=== PATIENT | female | born 1985 | race African-American/Black ===

== ENCOUNTER → 2017-02-10 | Outpatient (CLI) | payer MEDICAID ==
[~2017-02-10] MED LIST: ACET-1697 PO; AZIT500T2 PO; CEPH500C PO; CYCL10TA9 PO; DOXY100C42 PO; FERR-57 PO; HYDR250V7 IM; IBP600T1 PO; IBUP-1773 PO; METR500T17 PO; OMEP20TA33 PO; OXYC-471 PO; PREN1TAB25 PO; PRENATAL VITAMIN; PROGESTERONE VG
--- NOTE | 2017-02-10 18:22 | Diagnostic Imaging Report ---
INDICATION: Pain. COMPARISON: None. FINDINGS: Three views of the right foot demonstrate no acute fracture or dislocation. There are no focal osseous lesions. There is no soft tissue swelling. Mild degenerative changes are noted at the first tarsometatarsal joint space. Otherwise, joint spaces are well maintained. No radiopaque foreign bodies are seen. IMPRESSION: 1. No acute fractures or dislocations of the right foot. 2. Mild degenerative changes at the first tarsometatarsal joint space. Dictated by: Dictated on workstation # [id number]
== END ==
LOC: RAD 17:32
PROVIDERS: ATTEND Nurse Practitioner Family
DX: M79.671 Pain in right foot (principal)
CPT/HCPCS: 73630

== ENCOUNTER 2018-04-05 10:20 | Inpatient (IN) | payer MEDICAID ==
[~2018-04-05] VITALS: Ht 160 cm; Wt 120.2 kg
--- OUTSIDE RECORDS SUMMARY | 2018-04-05 10:44 | XMS REPORT ---
Author Author DOLLY SHARIF [facility] Address Unknown Care Team Providers Care Conveyor Console Operator Name Role Phone CHANTEDOLLY Unavailable PROBLEMS Type Condition ICD9-CM Code SCU72-OE Code Onset Dates Condition Status SNOMED Code Problem Dental examination Z01.20 Active 880589025 Problem Acute bronchitis 466.0 Active 59466705 Problem Supervision of other normal V22.1 Active 641282864 Problem examination or test, positive result V72.42 Active 205032030 Problem Infections of genitourinary tract in , unspecified as to episode of care 646.60 Active 876339352 Problem Previous delivery, unspecified as to episode of care or not applicable 654.20 Active 508001109 ALLERGIES No Information SOCIAL HISTORY Never Assessed PLAN OF CARE VITAL SIGNS MEDICATIONS Unknown Medications RESULTS No Results PROCEDURES Procedure Date Ordered Result Body Site Billing Notes on claim November 12, 2016 IMMUNIZATIONS No Known Immunizations MEDICAL (GENERAL) HISTORY Type Description Date Surgical History ceaserian section 2005 Surgical History c- section 2006 Hospitalization History c -section ' -
--- OUTSIDE RECORDS SUMMARY | 2018-04-05 10:44 | XMS REPORT ---
Author Author ARY MOHAN [facility] Address [address] [place] [address] Care Team Providers Care Movement Assembly Final Inspector Name Role Phone ARY MOHAN Unavailable PROBLEMS Type Condition ICD9-CM Code ILG91-TQ Code Onset Dates Condition Status SNOMED Code Problem Dental examination Z01.20 Active 527442699 Problem Acute bronchitis 466.0 Active 06835313 Problem Supervision of other normal V22.1 Active 835458259 Problem examination or test, positive result V72.42 Active 485716742 Problem Infections of genitourinary tract in , unspecified as to episode of care 646.60 Active 650035192 Problem Previous delivery, unspecified as to episode of care or not applicable 654.20 Active 098926547 ALLERGIES No Known Allergies SOCIAL HISTORY Never Assessed PLAN OF CARE Activity Details Follow Up 2 Weeks Reason:juliet VITAL SIGNS Blood pressure systolic 131 mmHg 2016-10-29 Blood pressure diastolic 86 mmHg 2016-10-29 MEDICATIONS Unknown Medications RESULTS No Results PROCEDURES Procedure Date Ordered Result Body Site INTRAORL-PERIAPICAL 1 FILM 94796 Oct 29, 2016 INTRAORL-PERIAPICAL EA ADD FILM Oct 29, 2016 TOPICAL FLUORIDE VARNISH Oct 29, 2016 BITEWINGS - FOUR FILMS Oct 29, 2016 INTRAORL-PERIAPICAL EA ADD FILM Oct 29, 2016 PROPHYLAXIS - ADULT Oct 29, 2016 PANORAMIC FILM SEE ALSO CODE 65883 Oct 29, 2016 IMMUNIZATIONS No Known Immunizations MEDICAL (GENERAL) HISTORY Type Description Date Surgical History ceaserian section 2005 Surgical History c- section 2005 Hospitalization History c -section -
[2018-04-05] MEDS ORDERED: NS IV 1000 ML 1,000 ML IV ONE ×2 (10:46→12:39)
[2018-04-05] MEDS ORDERED: fentaNYL INJECTION 100 MCG/2 ML AMP IVP STA ×2 (10:46→11:47)
--- OUTSIDE RECORDS SUMMARY | 2018-04-05 10:46 | XMS REPORT | Continuity of Care Document ---
Author Author [facility] Address Unknown Phone Unavailable Allergies Active Description Code Type Severity Reaction Onset Reported/Identified Relationship to Patient Clinical Status Yes No Known Drug Allergies [id number] Drug Allergy Unknown N/A 09/25/2014 Medications There is no data. Problems Date Dx Coded Attending Type Code Diagnosis Diagnosed By 04/21/2013 MARCOS GARZA DO 466.0 BRONCHITIS, ACUTE 04/21/2013 MANJU PANIAGUA APRN 466.0 BRONCHITIS, ACUTE 07/21/2014 MARCOS GARZA DO V72.42 TEST POSITIVE RESULT 07/21/2014 MANJU PANIAGUA APRN V72.42 TEST POSITIVE RESULT 09/05/2014 MANJU PANIAGUA APRN 646.60 COMPL OF - UTI 09/05/2014 MANJU PANIAGUA APRN 654.20 PREVIOUS 09/05/2014 MANJU PANIAGUA APRN V22.1 , NORMAL OTHER 09/25/2014 KARLA DIAZ, JULIAN T Ot 599.0 URIN TRACT INFECTION NOS 09/25/2014 KARLA DIAZ, JULIAN T Ot 623.8 NONINFLAM DIS VAGINA NEC 09/25/2014 KARLA DIAZ, JULIAN T Ot 646.63 INFECTION-ANTEPARTUM 09/25/2014 KARLA DIAZ, JULIAN T Ot 654.73 ABNORM VAGINA-ANTEPARTUM 09/25/2014 KARLA DIAZ, JULIAN Medley Ot V07.2 PROPHYLACT IMMUNOTHERAPY 10/16/2014 MANJU PANIAGUA APRN Ot V22.1 10/16/2014 MANJU PANAIGUA APRN Ot V28.89 10/18/2014 MARCOS GARZA DO Ot 285.1 AC POSTHEMORRHAG ANEMIA 10/18/2014 MARCOS GARZA DO Ot 648.21 ANEMIA-DELIVERED 10/18/2014 MARCOS GARZA DO Ot 652.21 BREECH PRESENTAT-DELIVER 10/18/2014 GREG WARD MARCOS Fabiola Ot 658.11 DEE DEE RUPT MEMBRAN-DELIV 10/18/2014 GARZA MARCOS WARD Ot 666.02 THRD-STAGE HEM-DEL W P/P 10/18/2014 GREG WARDANDREEAA Fabiola Ot 670.12 PUERPERAL ENDOMETRITIS DELIVERED W POSTP 10/18/2014 GREG WARD MARCOS Fabiola Ot V27.1 DELIVER-SINGLE STILLBORN 11/14/2014 Ot 784.7 11/14/2014 Ot 923.00 11/14/2014 Ot 959.01 11/14/2014 Ot E000.8 11/14/2014 Ot E812.1 12/21/2014 MANJU PANIAGUA [employer] CONSULTANT Ot V22.1 12/21/2014 MANJU PANIAGUA [employer] FIN[employer]CI[employer] CONSULTANT Ot V28.89 12/21/2014 MANJU PANIAGUA [employer] FIN[employer]CIALS CONSULTANT Ot V22.1 12/21/2014 MANJU PANIAGUA [employer] FIN[employer]CIALS CONSULTANT Ot V28.89 02/12/2015 CLAUDETTE CARDONA [employer] CONSULTANT Ot 599.0 URIN TRACT INFECTION NOS 02/12/2015 CLAUDETTE CARDONA [employer] FIN[employer]CIALS CONSULTANT Ot 623.8 NONINFLAM DIS VAGINA NEC 02/12/2015 CLAUDETTE CARDONA [employer] FIN[employer]CI[employer] CONSULTANT Ot 640.03 THREATEN ABORT-ANTEPART 02/12/2015 CLAUDETTE CARDONA [employer] CONSULTANT Ot 646.63 INFECTION-ANTEPARTUM 02/12/2015 MANJU PANIAGUA [employer] FIN[employer]CIALS CONSULTANT Ot V22.1 02/12/2015 MANJU PANIAGUA A [employer] FIN[employer]CIALS CONSULTANT Ot V28.89 02/27/2015 CHRISTINA PANIAGUAIDI A [employer] CONSULTANT Ot V22.1 02/27/2015 CHRISTINA PANIAGUAIDI A [employer] FIN[employer]CIALS CONSULTANT Ot V28.89 02/27/2015 MANJU PANIAGUA A [employer] FIN[employer]CIALS CONSULTANT Ot V22.1 02/27/2015 MANJU PANIAGUA [employer] FIN[employer]CIALS CONSULTANT Ot V28.89 03/08/2015 CHRISTINA PANIAGUAIDI A [employer] FIN[employer]CIALS CONSULTANT Ot V22.1 03/08/2015 MANJU PANIAGUA A [employer]AC[employer] FINANCIALS CONSULTANT Ot V28.89 03/13/2015 MANJU PANIAGUA [employer] FINANCIALS CONSULTANT Ot V22.1 03/13/2015 MANJU PANIAGUA [employer] FIN[employer]CIALS CONSULTANT Ot V28.89 03/20/2015 MANJU PANIAGUA [employer] FIN[employer]CIALS CONSULTANT Ot V22.1 03/20/2015 MANJU PANIAGUA [employer] FIN[employer]CIALS CONSULTANT Ot V28.89 03/20/2015 LUCIANA WARDJENNIFER Ot 654.53 03/20/2015 CHOWDHURY JENNIFER Ot V72.84 03/20/2015 MANJU PANIAGUA [employer] FIN[employer] CONSULTANT Ot V22.1 03/20/2015 MANJU PANIAGUA [employer] FIN[employer]CIALS CONSULTANT Ot V28.89 03/20/2015 JENNIFER CHOWDHURY DO Ot 654.53 03/20/2015 CHOWDHUYR DOJENNIFER Ot V72.84 03/20/2015 JENNIFER CHOWDHURY DO Ot 654.53 CERV INCOMPET-ANTEPARTUM 04/14/2015 JENNIFER CHOWDHURY DO Ot 041.85 04/14/2015 JENNIFER CHOWDHURY DO Ot 616.10 04/14/2015 JENNIFER CHOWDHURY DO Ot 646.63 04/14/2015 JENNIFER CHOWDHURY DO Ot 654.23 04/14/2015 JENNIFER CHOWDHURY DO Ot 654.53 04/14/2015 JENNIFER CHOWDHURY DO Ot 658.13 04/20/2015 JENNIFER CHOWDHURY DO Ot 041.85 BACTERIAL INFEC DUE TO OTH GRAM-NEG ORGA 04/20/2015 JENNIFER CHOWDHURY DO Ot 616.10 VAGINITIS NOS 04/20/2015 JENNIFER CHOWDHURY DO Ot 646.63 INFECTION-ANTEPARTUM 04/20/2015 JENNIFER CHOWDHURY DO Ot 654.23 PREV DELIVERY, ANTEPARTUM COND 04/20/2015 JENNIFER CHOWDHURY DO Ot 654.53 CERV INCOMPET-ANTEPARTUM 04/20/2015 JENNIFER CHOWDHURY DO Ot 658.13 DEE DEE RUPT MEMB-ANTEPART 04/27/2015 JENNIFER CHOWDHURY DO Ot 644.03 THRT DEE DEE LABOR-ANTEPART 04/27/2015 JENNIFER CHOWDHURY DO Ot 658.13 DEE DEE RUPT MEMB-ANTEPART 04/29/2015 JENNIFER CHOWDHURY DO Ot 285.1 AC POSTHEMORRHAG ANEMIA 04/29/2015 JENNIFER CHOWDHURY DO Ot 632 MISSED 04/29/2015 JENNIFER CHOWDHURY DO Ot 648.22 ANEMIA-DELIVERED W P/P 04/29/2015 JENNIFER CHOWDHURY DO Ot 652.21 BREECH PRESENTAT-DELIVER 04/29/2015 JENNIFER CHOWDHURY DO Ot 654.21 PREV DELIVRY W/ OR W/O MENT ANT 04/29/2015 JENNIFER CHOWDHURY DO Ot 654.51 CERVICAL INCOMPET-DELIV 04/29/2015 JENNIFER CHOWDHURY DO Ot 658.21 PROLONG RUPT MEMB-DELIV 04/29/2015 JENNIFER CHOWDHURY DO Ot 658.41 AMNIOTIC INFECTION-DELIV 04/29/2015 JENNIFER CHOWDHURY DO Ot 667.12 RET PROD CONC-DEL W P/P 04/29/2015 JENNIFER CHOWDHURY DO Ot V07.2 PROPHYLACT IMMUNOTHERAPY 04/29/2015 JENNIFER CHOWDHURY DO Ot V27.0 DELIVER-SINGLE LIVEBORN 05/09/2015 JENNIFER CHOWDHURY DO Ot 041.85 05/09/2015 JENNIFER CHOWDHURY DO Ot 616.10 05/09/2015 JENNIFER CHOWDHURY DO Ot 646.63 05/09/2015 JENNIFER CHOWDHURY DO Ot 654.23 05/09/2015 JENNIFER CHOWDHURY DO Ot 654.53 05/09/2015 JENNIFER CHOWDHURY DO Ot 658.13 02/10/2017 MANJU PANIAGUA APRN Ot V22.1 SUPERVIS OTH NORMAL PREG 02/10/2017 MANJU PANIAGUA APRN Ot V28.89 OTHER SPECIFIED SCREENING 02/10/2017 JENNIFER CHOWDHURY DO Ot 654.53 CERV INCOMPET-ANTEPARTUM 02/10/2017 JENNIFER CHWODHURY DO Ot V72.84 EXAM PRE-OPERATIVE NOS 02/23/2017 NAZ CARPENTERP Ot M79.671 PAIN IN RIGHT FOOT Procedures Code Description [place] [address] TEST, URINE (IN- HOUSE) 07/21/2014 98821 US OB - EARLY <14 WEEKS 09/05/2014 52489 UA LONG DIP 09/05/2014 65444 CULTURE URINE 09/07/2014 69.02 D C POST DELIVERY 10/15/2014 73.59 MANUAL ASSIST DELIV NEC 10/15/2014 96.49 OTHER INSTILLATION 10/15/2014 67.59 OTH REPAIR INTERNAL CERVICAL OS 04/14/2015 69.02 D C POST DELIVERY 04/28/2015 73.59 MANUAL ASSIST DELIV NEC 04/28/2015 Results There is no data. Encounters ACCT No. Visit Date/Time Discharge Status Pt. Type Provider Facility Loc./Unit Complaint [id number] 09/05/2014 11:46:00 09/05/2014 23:59:59 CLS Outpatient SIVA COONEY MANJU A [id number] 07/21/2014 09:14:00 07/21/2014 23:59:59 CLS Outpatient GREG WARD MARCOS K [id number] 02/10/2017 17:32:00 02/10/2017 23:59:59 CLS Outpatient NAZ CARPENTER [facility] RAD R FOOT PAIN [id number] 04/28/2015 12:34:00 04/29/2015 12:50:00 DIS Inpatient JENNIFER CHOWDHURY DO [facility] LDRP MISCARRIAGE [id number] 04/27/2015 21:37:00 04/27/2015 23:10:00 DIS Outpatient JENNIFER CHOWDHURY DO [facility] WSo CONTRACTIONS [id number] 04/14/2015 19:15:00 04/20/2015 09:50:00 DIS Inpatient JENNIFER CHOWDHURY DO [facility] LDRP INCOMPETENT CERVIX, CHRONIC VAGINAL INFECTION [id number] 03/20/2015 09:11:00 03/20/2015 14:51:00 DIS Outpatient JENNIFER CHOWDHURY DO [facility] SDC CERVICAL INCOMPETENCE [id number] 03/15/2015 06:25:00 03/15/2015 23:59:59 CLS Outpatient JENNIFER CHOWDHURY DO [facility] PREOP CERVICAL INCOMPETENCE [id number] 02/12/2015 14:11:00 02/12/2015 17:23:00 DIS Emergency CLAUDETTE CARDONA APRN [facility] ER VAG BLEEDING/PASSING CLOTS 8 WKS PREG [id number] 10/13/2014 13:43:00 10/18/2014 10:10:00 DIS Inpatient MARCOS GARZA DO [facility] LDRP PPROM [id number] 09/25/2014 02:04:00 09/25/2014 04:27:00 DIS Emergency KARLA DIAZ, JULIAN Medley [facility] ER BLEEDING;13 WEEKS [id number] 09/15/2014 11:04:00 09/15/2014 23:59:59 CLS Outpatient MANJU PANIAGUA APRN [facility] RAD DATING,VIABILITY [id number] 11/14/2014 14:02:00 Document Registration
[2018-04-05 10:52] LABS: BASOPHILS % (AUTO) 0 % (0-10); EOSINOPHILS # (AUTO) 0.1 10^3/uL (0.0-0.3); EOSINOPHILS % (AUTO) 1 % (0-10); HEMATOCRIT 37 % (35-52); HEMOGLOBIN 12.2 G/DL (11.5-16.0); LYMPHOCYTES # (AUTO) 1.4 X 10^3 (1.0-4.0); LYMPHOCYTES % (AUTO) 8 % (12-44); MEAN CORPUSCULAR HEMOGLOBIN 21 PG (25-34); MEAN CORPUSCULAR HGB CONC 33 G/DL (32-36); MEAN CORPUSCULAR VOLUME 65 FL (80-99); MEAN PLATELET VOLUME 9.8 FL (7.4-10.4); MONOCYTES # (AUTO) 1.1 X 10^3 (0.0-1.0); MONOCYTES % (AUTO) 6 % (0-12); NEUTROPHILS # (AUTO) 14.5 X 10^3 (1.8-7.8); NEUTROPHILS % (AUTO) 85 % (42-75); PLATELET COUNT 283 10^3/uL (130-400); RED BLOOD COUNT 5.71 10^6/uL (4.35-5.85); RED CELL DISTRIBUTION WIDTH 15.8 % (10.0-14.5); WHITE BLOOD COUNT 17.1 10^3/uL (4.3-11.0)
--- NOTE | 2018-04-05 10:56 | ED Abdominal Pain ---
General Stated Complaint: ABD PAIN Source of Information: Patient Exam Limitations: No Limitations History of Present Illness Date Seen by Provider: Apr 05, 2018 Time Seen by Provider: 10:46 Initial Comments Here with report of right lower quadrant abdominal pain since yesterday. Started her period recently. She does have IUD as well. Denies vaginal discharge. She is currently bleeding with her menstrual period. Denies dysuria or diarrhea. Complains of pain when walking or moving and pain seems to be centered on the right lower quadrant although did start more periumbilical. Arrives tachycardic and febrile. Timing/Duration: 1-2 Days Severity/Quality: Moderate, Severe Location: RLQ Radiation: RLQ, Periumbilical Activities at Onset: None Modifying Factors: Worsens With Movement Associated Symptoms: No Back Pain, No Chest Pain, No Fever/Chills, No Nausea/ Vomiting, No Shortness of Air, No Weakness Allergies and Home Medications Allergies Coded Allergies: No Known Drug Allergies (Unverified , 09/25/14) Home Medications No Active Prescriptions or Reported Meds Patient Home Medication List Home Medication List Reviewed: Yes Review of Systems Constitutional: see HPI; No chills; fever; No weakness EENTM: No Symptoms Reported Respiratory: No Symptoms Reported; Denies Cough, Denies SOA at Rest Cardiovascular: Denies Chest Pain, Denies Edema Gastrointestinal: Abdominal Pain; Denies Diarrhea, Denies Vomiting Genitourinary: No Symptoms Reported Musculoskeletal: No back pain, No muscle pain Skin: no symptoms reported All Other Systems Reviewed Negative Unless Noted: Yes Past Ihdlqad-Whgaoz-Njbcab Hx Past Med/Social Hx: Reviewed Nursing Past Med/Soc Hx Patient Social History Alcohol Use: Denies Use Recreational Drug Use: No Smoking Status: Never a Smoker Recent Foreign Travel: No Contact w/Someone Who Travel: No Immunizations Up To Date Tetanus Booster (TDap): Unknown Seasonal Allergies Seasonal Allergies: No Past Medical History Surgeries: Yes Section Cardiac: No Neurological: No Reproductive Disorders: No Sexually Transmitted Disease: No HIV/AIDS: No Gastrointestinal: No Musculoskeletal: No HEENT: No Cancer: No Integumentary: Yes Adverse Reaction/Blood Tranf: No Family Medical History Diabetes mellitus 19 FATHER 19 MOTHER Diabetes Physical Exam Vital Signs Vital Signs - First Documented 04/05/18 10:45 Temp 102.2 Pulse 135 Resp 18 B/P (MAP) 152/108 (123) Capillary Refill : Height/Weight/BMI Height: 5'3.00" Weight: 216lbs. oz. 97.243164nq; BMI Method:Stated General Appearance: WD/WN, mild distress HEENT: PERRL/EOMI, pharynx normal Neck: full range of motion, supple Respiratory: lungs clear, normal breath sounds Cardiovascular: regular rate, rhythm, no murmur Peripheral Pulses: 2+ Dorsalis Pedis (R), 2+ Left Dors-Pedis (L), 2+ Radial Pulses (R), 2+ Radial Pulses (L) Gastrointestinal: normal bowel sounds, soft; No distended, No guarding; rebound , tenderness (findings to the right lower quadrant) Extremities: non-tender, normal inspection Back: normal inspection, no CVA tenderness, no vertebral tenderness Neurologic/Psychiatric: alert, oriented x 3 Skin: normal color, warm/dry Focused Exam Lactate Level 04/05/18 10:50: Lactic Acid Level 1.24 Lactic Acid Level Laboratory Tests Test 04/05/18 10:50 Lactic Acid Level 1.24 MMOL/L (0.50-2.00) Progress/Results/Core Measures Results/Orders Lab Results Laboratory Tests Test 04/05/18 10:45 04/05/18 10:50 04/05/18 11:55 Range/Units White Blood Count 17.1 H 4.3-11.0 10^3/uL Red Blood Count 5.71 4.35-5.85 10^6/uL Hemoglobin 12.2 11.5-16.0 G/DL Hematocrit 37 35-52 % Mean Corpuscular Volume 65 L 80-99 FL Mean Corpuscular Hemoglobin 21 L 25-34 PG Mean Corpuscular Hemoglobin Concent 33 32-36 G/DL Red Cell Distribution Width 15.8 H 10.0-14.5 % Platelet Count 283 130-400 10^3/uL Mean Platelet Volume 9.8 7.4-10.4 FL Neutrophils (%) (Auto) 85 H 42-75 % Lymphocytes (%) (Auto) 8 L 12-44 % Monocytes (%) (Auto) 6 0-12 % Eosinophils (%) (Auto) 1 0-10 % Basophils (%) (Auto) 0 0-10 % Neutrophils # (Auto) 14.5 H 1.8-7.8 X 10^3 Lymphocytes # (Auto) 1.4 1.0-4.0 X 10^3 Monocytes # (Auto) 1.1 H 0.0-1.0 X 10^3 Eosinophils # (Auto) 0.1 0.0-0.3 10^3/uL Basophils # (Auto) 0.0 0.0-0.1 10^3/uL Neutrophils % (Manual) 83 % Lymphocytes % (Manual) 10 % Monocytes % (Manual) 5 % Eosinophils % (Manual) 0 % Basophils % (Manual) 0 % Band Neutrophils 2 % Hypochromasia SLIGHT Microcytosis MODERATE Sodium Level 137 135-145 MMOL/L Potassium Level 4.0 3.6-5.0 MMOL/L Chloride Level 109 H 98-107 MMOL/L Carbon Dioxide Level 22 21-32 MMOL/L Anion Gap 6 5-14 MMOL/L Blood Urea Nitrogen 12 7-18 MG/DL Creatinine 0.85 0.60-1.30 MG/DL Estimat Glomerular Filtration Rate > 60 BUN/Creatinine Ratio 14 Glucose Level 124 H 70-105 MG/DL Calcium Level 9.1 8.5-10.1 MG/DL Total Bilirubin 0.8 0.1-1.0 MG/DL Aspartate Amino Transf (AST/SGOT) 28 5-34 U/L Alanine Aminotransferase (ALT/SGPT) 32 0-55 U/L Alkaline Phosphatase 132 40-136 U/L C-Reactive Protein High Sensitivity 3.11 H 0.00-0.50 MG/DL Total Protein 7.8 6.4-8.2 GM/DL Albumin 3.8 3.2-4.5 GM/DL Serum Test, Qualitative NEGATIVE NEGATIVE Lactic Acid Level 1.24 0.50-2.00 MMOL/L Urine Color YELLOW Urine Clarity CLEAR Urine pH 8 5-9 Urine Specific [place] 1.010 L 1.016-1.022 Urine Protein 2+ H NEGATIVE Urine Glucose (UA) NEGATIVE NEGATIVE Urine Ketones NEGATIVE NEGATIVE Urine Nitrite POSITIVE H NEGATIVE Urine Bilirubin NEGATIVE NEGATIVE Urine Urobilinogen 4 H NORMAL MG/DL Urine Leukocyte Esterase 3+ H NEGATIVE Urine RBC (Auto) 5+ H NEGATIVE Urine RBC 5-10 H /HPF Urine WBC 25-50 H /HPF Urine Squamous Epithelial Cells 2-5 /HPF Urine Crystals NONE /LPF Urine Bacteria LARGE H /HPF Urine Casts NONE /LPF Urine Mucus NEGATIVE /LPF Urine Culture Indicated YES My Orders Orders - EMILY MCGINNIS MD Cbc With Automated Diff (04/05/18 10:46) Comprehensive Metabolic Panel (04/05/18 10:46) Hs C Reactive Protein (04/05/18 10:46) Ua Culture If Indicated (04/05/18 10:46) Saline Lock/Iv-Start (04/05/18 10:46) Ns Iv 1000 Ml (Sodium Chloride 0.9%) (04/05/18 10:46) Fentanyl Injection (Sublimaze Injection (04/05/18 10:46) Manual Differential (04/05/18 10:45) Hcg,Qualitative Serum (04/05/18 10:53) Lactic Acid Analyzer (04/05/18 10:53) Blood Culture (04/05/18 10:53) Ct Abd/Pelv W (Appendicitis) (04/05/18 11:09) Iohexol Injection (Omnipaque 350 Mg/Ml 1 (04/05/18 11:15) Ns (Ivpb) (Sodium Chloride 0.9% Ivpb Bag (04/05/18 11:15) Fentanyl Injection (Sublimaze Injection (04/05/18 11:47) Urine Culture (04/05/18 11:55) Ceftriaxone Injection (Rocephin Injectio (04/05/18 12:30) Ketorolac Injection (Toradol Injection) (04/05/18 12:26) Ondansetron Injection (Zofran Injectio (04/05/18 12:45) Saline Lock/Iv-Start (04/05/18 12:39) Ns Iv 1000 Ml (Sodium Chloride 0.9%) (04/05/18 12:39) Ondansetron Injection (Zofran Injectio (04/05/18 12:37) Medications Given in ED Current Medications Medications Dose Ordered Sig/Lexx Route Start Time Stop Time Status Last Admin Dose Admin Ceftriaxone Sodium 1000 mg/ Sodium Chloride 50 ml @ 100 mls/hr ONCE ONCE IV 04/05/18 12:30 04/05/18 12:59 04/05/18 12:36 100 MLS/HR Iohexol 100 ml ONCE ONCE IV 04/05/18 11:15 04/05/18 11:17 DC 04/05/18 11:24 100 ML Ondansetron HCl 8 mg ONCE ONCE IVP 04/05/18 12:45 04/05/18 12:46 04/05/18 12:41 8 MG Sodium Chloride 100 ml ONCE ONCE IV 04/05/18 11:15 04/05/18 11:17 DC 04/05/18 11:24 100 ML Sodium Chloride 1,000 ml @ 0 mls/hr Q0M ONCE IV 04/05/18 10:46 04/05/18 10:48 DC 04/05/18 11:02 1,000 MLS/HR Sodium Chloride 1,000 ml @ 0 mls/hr Q0M ONCE IV 04/05/18 12:39 04/05/18 12:40 DC 04/05/18 12:41 1,000 MLS/HR Vital Signs/I&O 04/05/18 10:45 Temp 102.2 Pulse 135 Resp 18 B/P (MAP) 152/108 (123) Progress Progress Note : Progress Note Seen and evaluated. IV, labs, UA, normal saline 1 L bolus and fentanyl [address] abdomen and pelvis appendicitis protocol ordered. Monitor patient. Pain persists. Fentanyl 75 g IV ordered. 1225: CT results noted and UA results noted. Urine is positive for urinary tract infection with nitrite positive findings as well as multiple white cells. Physical exam is more consistent with appendicitis but we will initiate treatment for UTI with Rocephin 1 g IV. I have discussed the case with Dr. Sky and she accepts patient for admission due to probable pyelonephritis especially given her elevated white count and fever. I will also consult Dr. Chiang due to my concerns related to the appendix as well as the multiple enlarged lymph nodes. This may be related to either appendicitis or the pyelonephritis but will need to have further evaluation. All findings and concerns were discussed with patient and family who agree with plan. Admit, inpatient status. Diagnostic Imaging Diagonstic Imaging: CT Plain Films/CT/US/NM/MRI: abdomen, pelvis Comments NAME: LEYLA PICHARDO [facility] REC#: [id number] PT STATUS: REG ER : 1985 PHYSICIAN: EMILY MCGINNIS MD ADMIT DATE: 04/05/18/ER Draft Date of Exam:07/23/18 CT ABD/PELV W (APPENDICITIS) PROCEDURE: CT abdomen and pelvis with contrast, rule out appendicitis. TECHNIQUE: Multiple contiguous axial images were obtained through the abdomen and pelvis after the administration of intravenous contrast. INDICATION: Left-sided abdominal pain and nausea of one day's duration. I have no previous for comparison. Abnormal morphology of the renal cortices which may reflect chronic areas of scarring or persistent lobation. No hydronephrosis or evidence for renal mass is found and no perinephric edema or acute renal pathology. The adrenals are negative. Liver measures 24 cm transverse by 17 cm cephalocaudal. The spleen is nonfocal and is normal in size. The gallbladder appears normal. There is no bile duct dilatation. The patient's pancreas unremarkable. The appendix is a upper limits of size at 8.3 cm transverse however shows air within its lumen and the wall was not appreciably thickened and there is no periappendiceal edema. There is an IUD device present abnormally positioned inferiorly and abnormally oblique in its orientation where its limbs appeared likely embedding within the myometrium of the lower uterine segment. Correlative ultrasound recommended. No evidence for perforation or hemorrhage. Adnexa appeared unremarkable. The urinary bladder is unremarkable. There is no bowel, biliary or urinary tract obstruction. There is some fluid within the distal small bowel and proximal colon of questionable significance. Air and stool distally to the rectal vault present, no free air or pneumatosis. No differential air-fluid levels. There is mild to moderate periaortic retroperitoneal lymphadenopathy. There are multiple lymph nodes measuring greater than 1 cm, the largest is 1.4 x 1.2 cm. These are found bilaterally above and below the level of the patent renal veins. There is mild adenopathy along the mesenteric root where predominantly spherical nodes measured about 1 cm maximal. There is a bilateral iliac chain and pelvic sidewall adenopathy and mild bilateral inguinal lymphadenopathy. There is no suspicious osseous pattern, no fracture. No ascites, abscess, hematoma or other fluid collection. IMPRESSION: 1. Mild abdominal pelvic mesenteric and retroperitoneal lymphadenopathy with nonfocal hepatomegaly. Findings cannot be confirmed benign and either tissue sampling or short-term followup would be recommended. 2. There appears to be malpositioning of an IUD device caudally positioned and with its bilateral lens likely imbedding into the lower myometrium. No perforation or hemorrhage. 3. Likely an incidental persistent lobation versus less likely the sequelae of chronic areas of cortical scarring and volume loss in the kidneys. Unobstructed urinary tracts with no acute urinary tract pathology. 4. Borderline fluid distention of the distal small bowel in the proximal large bowel, may reflect mild nonspecific enterocolitis or hypermotile state. Dictated on workstation # [id number] Dict: 04/05/18 1139 Trans: 04/05/18 1155 [facility] [id number] Interpreted by: MARINO ROMAN Electronically signed by: Reviewed: Reviewed by Me Departure Communication (Admissions) Time/Spoke to Admitting Phy: 12:38 Time/Spoke to Consulting Phy: 12:25 Impression Primary Impression: Pyelonephritis Additional Impression: Right lower quadrant abdominal pain Disposition: ADMITTED INPATIENT Condition: Stable Admissions Decision to Admit Reason: Admit from ER (General) Decision to Admit/Date: Apr 05, 2018 Time/Decision to Admit Time: 12:25 Departure-Patient Inst. Referrals: [facility] (PCP/Family) Primary Care Physician Scripts No Active Prescriptions or Reported Meds EMILY MCGINNIS MD Apr 05, 2018 10:56
[2018-04-05 11:10] LABS: ALANINE AMINOTRANSFERASE 32 U/L (0-55); ALBUMIN 3.8 GM/DL (3.2-4.5); ALKALINE PHOSPHATASE 132 U/L (40-136); BILIRUBIN,TOTAL 0.8 MG/DL (0.1-1.0); BUN/CREATININE RATIO 14; CALCIUM 9.1 MG/DL (8.5-10.1); CARBON DIOXIDE 22 MMOL/L (21-32); CHLORIDE 109 MMOL/L (98-107); CREATININE SERUM 0.85 MG/DL (0.60-1.30); GFR ESTIMATED > 60; GLUCOSE 124 MG/DL (70-105); SODIUM 137 MMOL/L (135-145); TOTAL PROTEIN 7.8 GM/DL (6.4-8.2)
[2018-04-05] MEDS ORDERED: IOHEXOL 350 MG/ML 100 ML (OMNIPAQUE 350) VIAL IV ONE (11:15)
[2018-04-05] MEDS ORDERED: NS 100 ML (IVPB) BAG IV ONE (11:15)
[2018-04-05 11:16] LABS: BAND NEUTROPHILS 2 %; BASOPHILS % (MANUAL) 0 %; EOSINOPHILS % (MANUAL) 0 %; HYPOCHROMASIA SLIGHT; LYMPHOCYTES % (MANUAL) 10 %; MICROCYTOSIS MODERATE; MONOCYTES % (MANUAL) 5 %; NEUTROPHILS % (MANUAL) 83 %
--- NOTE | 2018-04-05 11:56 | Diagnostic Imaging Report ---
PROCEDURE: CT abdomen and pelvis with contrast, rule out appendicitis. TECHNIQUE: Multiple contiguous axial images were obtained through the abdomen and pelvis after the administration of intravenous contrast. INDICATION: Left-sided abdominal pain and nausea of one day's duration. I have no previous for comparison. Abnormal morphology of the renal cortices which may reflect chronic areas of scarring or persistent lobation. No hydronephrosis or evidence for renal mass is found and no perinephric edema or acute renal pathology. The adrenals are negative. Liver measures 24 cm transverse by 17 cm cephalocaudal. The spleen is nonfocal and is normal in size. The gallbladder appears normal. There is no bile duct dilatation. The patient's pancreas unremarkable. The appendix is a upper limits of size at 8.3 cm transverse however shows air within its lumen and the wall was not appreciably thickened and there is no periappendiceal edema. There is an IUD device present abnormally positioned inferiorly and abnormally oblique in its orientation where its limbs appeared likely embedding within the myometrium of the lower uterine segment. Correlative ultrasound recommended. No evidence for perforation or hemorrhage. Adnexa appeared unremarkable. The urinary bladder is unremarkable. There is no bowel, biliary or urinary tract obstruction. There is some fluid within the distal small bowel and proximal colon of questionable significance. Air and stool distally to the rectal vault present, no free air or pneumatosis. No differential air-fluid levels. There is mild to moderate periaortic retroperitoneal lymphadenopathy. There are multiple lymph nodes measuring greater than 1 cm, the largest is 1.4 x 1.2 cm. These are found bilaterally above and below the level of the patent renal veins. There is mild adenopathy along the mesenteric root where predominantly spherical nodes measured about 1 cm maximal. There is a bilateral iliac chain and pelvic sidewall adenopathy and mild bilateral inguinal lymphadenopathy. There is no suspicious osseous pattern, no fracture. No ascites, abscess, hematoma or other fluid collection. IMPRESSION: 1. Mild abdominal pelvic mesenteric and retroperitoneal lymphadenopathy with nonfocal hepatomegaly. Findings cannot be confirmed benign and either tissue sampling or short-term followup would be recommended. 2. There appears to be malpositioning of an IUD device caudally positioned and with its bilateral lens likely imbedding into the lower myometrium. No perforation or hemorrhage. 3. Likely an incidental persistent lobation versus less likely the sequelae of chronic areas of cortical scarring and volume loss in the kidneys. Unobstructed urinary tracts with no acute urinary tract pathology. 4. Borderline fluid distention of the distal small bowel in the proximal large bowel, may reflect mild nonspecific enterocolitis or hypermotile state. Dictated by: Dictated on workstation # [id number]
[2018-04-05 12:04] LABS: BILIRUBIN,URINE NEGATIVE (NEGATIVE); CLARITY,URINE CLEAR; COLOR,URINE YELLOW; GLUCOSE, URINE (UA) NEGATIVE (NEGATIVE); KETONES,URINE NEGATIVE (NEGATIVE); LEUKOCYTE ESTERASE ,URINE 3+ (NEGATIVE); NITRITE,URINE POSITIVE (NEGATIVE); PH,URINE 8 (5-9); PROTEIN,URINE 2+ (NEGATIVE); UROBILINOGEN,URINE 4 MG/DL (NORMAL)
[2018-04-05 12:13] LABS: BACTERIA,URINE LARGE /HPF; WBC,URINE 25-50 /HPF
[2018-04-05] MEDS ORDERED: KETOROLAC 30 MG/ML VIAL IVP STA (12:26)
[2018-04-05] MEDS ORDERED: cefTRIAXone INJECTION 1,000 MG in NS (IVPB) 50 ML IV ONE (12:30)
[2018-04-05] MEDS ORDERED: ONDANSETRON 4 MG/2 ML (SDV) Z0FRAN ONE (12:37)
[2018-04-05] MEDS ORDERED: ONDANSETRON 4 MG/2 ML (SDV) Z0FRAN IVP ONE (12:45)
--- OUTSIDE RECORDS SUMMARY | 2018-04-05 13:21 | XMS REPORT | Continuity of Care Document ---
Author Author [facility] Address Unknown Phone Unavailable Allergies Active Description Code Type Severity Reaction Onset Reported/Identified Relationship to Patient Clinical Status Yes No Known Drug Allergies [id number] Drug Allergy Unknown N/A 09/25/2014 Medications There [...] MANJU PANIAGUA APRN Ot V22.1 10/16/2014 MANJU PANIAGUA APRN Ot V28.89 10/18/2014 MARCOS GARZA DO [...] E000.8 11/14/2014 Ot E812.1 12/21/2014 MANJU PANIAGUA MELON PACKER Ot V22.1 12/21/2014 MANJU PANIAGUA MELON PACKER Ot V28.89 12/21/2014 MANJU PANIAGUA MELON PACKER Ot V22.1 12/21/2014 MANJU PANIAGUA MELON PACKER Ot V28.89 02/12/2015 CLAUDETTE CARDONA MELON PACKER Ot 599.0 URIN TRACT INFECTION NOS 02/12/2015 CLAUDETTE CARDONA MELON PACKER Ot 623.8 NONINFLAM DIS VAGINA NEC 02/12/2015 CLAUDETTE CARDONA MELON PACKER Ot 640.03 THREATEN ABORT-ANTEPART 02/12/2015 CLAUDETTE CARDONA MELON PACKER Ot 646.63 INFECTION-ANTEPARTUM 02/12/2015 MANJU PANIAGUA MELON PACKER Ot V22.1 02/12/2015 MANJU PANIAGUA A MELON PACKER Ot V28.89 02/27/2015 CHRISTINA PANIAGUAIDI A MELON PACKER Ot V22.1 02/27/2015 CHRISTINA PANIAGUAIDI A MELON PACKER Ot V28.89 02/27/2015 MANJU PANIAGUA A MELON PACKER Ot V22.1 02/27/2015 MANJU PANIAGUA MELON PACKER Ot V28.89 03/08/2015 CHRISTINA PANIAGUAIDI A MELON PACKER Ot V22.1 03/08/2015 MANJU PANIAGUA A MELON PACKER Ot V28.89 03/13/2015 MANJU PANIAGUA MELON PACKER Ot V22.1 03/13/2015 MANJU PANIAGUA MELON PACKER Ot V28.89 03/20/2015 MANJU PANIAGUA MELON PACKER Ot V22.1 03/20/2015 MANJU PANIAGUA MELON PACKER Ot V28.89 03/20/2015 LUCIANA WARDJENNIFER Ot 654.53 03/20/2015 CHOWDHURY JENNIFER Ot V72.84 03/20/2015 MANJU PANIAGUA MELON PACKER Ot V22.1 03/20/2015 MANJU PANIAGUA MELON PACKER Ot V28.89 03/20/2015 JENNIFER CHOWDHURY DO Ot 654.53 03/20/2015 CHOWDHURY DOJENNIFER Ot V72.84 03/20/2015 JENNIFER CHOWDHURY DO [...] CHOWDHURY DO Ot 652.21 BREECH PRESENTAT-DELIVER 04/29/2015 JENNIFRE CHOWDHURY DO Ot 654.21 PREV DELIVRY W/ [...] DO Ot 654.53 CERV INCOMPET-ANTEPARTUM 02/10/2017 JENNIFER CHOWDHURY DO Ot V72.84 EXAM PRE-OPERATIVE NOS 02/23/2017 NAZ CARPENTERP Ot M79.671 PAIN IN RIGHT FOOT Procedures Code Description [place] [address] TEST, URINE (IN- HOUSE) 07/21/2014 03465 US OB - EARLY <14 WEEKS 09/05/2014 59414 UA LONG DIP 09/05/2014 60345 CULTURE URINE 09/07/2014 69.02 D C POST DELIVERY 10/15/2014 73.59 MANUAL ASSIST DELIV NEC 10/15/2014 96.49 OTHER INSTILLATION 10/15/2014 67.59 OTH REPAIR INTERNAL CERVICAL OS 04/14/2015 69.02 D C POST DELIVERY 04/28/2015 73.59 MANUAL ASSIST DELIV NEC 04/28/2015 Results There is no data. Encounters ACCT No. Visit Date/Time Discharge Status Pt. Type Provider Facility Loc./Unit Complaint [id number] 09/05/2014 11:46:00 09/05/2014 23:59:59 CLS Outpatient SIVA COONEY MANJU A [id number] 07/21/2014 09:14:00 07/21/2014 23:59:59 CLS Outpatient GREG WARD MARCOS K [id number] 02/10/2017 17:32:00 02/10/2017 23:59:59 CLS Outpatient NAZ CARPENTER [facility] RAD R FOOT PAIN [id number] 04/28/2015 12:34:00 04/29/2015 12:50:00 DIS Inpatient JENNIFER CHOWDHURY DO [facility] LDRP MISCARRIAGE [id number] 04/27/2015 21:37:00 04/27/2015 23:10:00 DIS Outpatient JENNIFER CHOWDHURY DO [facility] WSo CONTRACTIONS [id number] 04/14/2015 19:15:00 04/20/2015 09:50:00 DIS Inpatient JENNIFER CHOWDHURY DO [facility] LDRP INCOMPETENT CERVIX, CHRONIC VAGINAL INFECTION [id number] 03/20/2015 09:11:00 03/20/2015 14:51:00 DIS Outpatient JENNIFER CHOWDHURY DO [facility] SDC CERVICAL INCOMPETENCE [id number] 03/15/2015 06:25:00 03/15/2015 23:59:59 CLS Outpatient JENNIFER CHOWDHURY DO [facility] PREOP CERVICAL INCOMPETENCE [id number] 02/12/2015 14:11:00 02/12/2015 17:23:00 DIS Emergency CLAUDETTE CARDONA APRN [facility] ER VAG BLEEDING/PASSING CLOTS 8 WKS PREG [id number] 10/13/2014 13:43:00 10/18/2014 10:10:00 DIS Inpatient MARCOS GARZA DO [facility] LDRP PPROM [id number] 09/25/2014 02:04:00 09/25/2014 04:27:00 DIS Emergency KARLA DIAZ, JULIAN Medley [facility] ER BLEEDING;13 WEEKS [id number] 09/15/2014 11:04:00 09/15/2014 23:59:59 CLS Outpatient MANJU PANIAGUA APRN [facility] RAD DATING,VIABILITY [id number] 11/14/2014 14:02:00 Document Registration
--- NOTE | 2018-04-05 13:27 | History & Physical-Hospitalist ---
History of Present Illness HPI/Chief Complaint CC: RLQ abdominal pain with fever and Pyelonephritis HPI: This is a 33-year-old -[place] female who sees [facility] on a rare basis who presents to the ER with complaints of right lower quadrant abdominal pain with fever. She reports feeling well until 2 days prior when she started having nausea and the abdominal pain started and only worsened. She was assessed in the ER found to have elevated white count with fever of 102 in addition to a questionable right lower quadrant CT scan that could reveal early appendicitis. Dr. Chiang has been consulted and will place patient in nothing by mouth status and will monitor closely in case acute appendicitis is confirmed. She did have nausea and vomiting in the ER so will initiate IV fluids and anti-emetics along with abdominal pain management. She has been placed on Rocephin empirically and will follow up on urine culture results. Source: patient, family Exam Limitations: no limitations Date Seen 04/05/18 Time Seen by Provider: 13:10 Attending Physician Rosa Sky DO [facility] Referring Physician Date of Admission Apr 05, 2018 at 12:27 Home Medications & Allergies Home Medications Reviewed patient Home Medication Reconciliation performed by pharmacy medication reconciliations biomass technician and/or nursing. Patients Allergies have been reviewed. Allergies Allergies Coded Allergies No Known Drug Allergies (Unverified09/25/14) Past Aexornt-Wkjtbx-Fppvvs Hx Past Med/Social Hx: Reviewed Nursing Past Med/Soc Hx, Reviewed and Corrections made Patient Social History Marrital Status: single Employed/Student: employed ([employer]) Alcohol Use: Denies Use Recreational Drug Use: No Smoking Status: Never a Smoker Recent Foreign Travel: No Contact w/other who traveled: No Recent Hopitalizations: No Recent Infectious Disease Expo: No Immunizations Up To Date Tetanus Booster (TDap): Unknown Seasonal Allergies Seasonal Allergies: No Past Medical History Surgeries: Section Reproductive: No Sexually Transmitted Disease: No HIV/AIDS: No Female Reproductive Disorders: Denies History of Blood Disorders: No Adverse Reaction to Blood Jur[place]: No Family History Diabetes mellitus 19 FATHER 19 MOTHER Diabetes Review of Systems Constitutional: see HPI, fever, malaise, weakness EENTM: no symptoms reported Respiratory: no symptoms reported Cardiovascular: no symptoms reported Gastrointestinal: abdominal pain (RLQ), constipation (1 week ago last BM, chronic issue) Musculoskeletal: back pain Skin: no symptoms reported Psychiatric/Neurological: No Symptoms Reported All Other Systems Reviewed Negative Unless Noted: Yes Physical Exam Physical Exam Vital Signs Vital Signs - First Documented 04/05/18 04/05/18 10:45 13:19 Temp 102.2 Pulse 135 Resp 18 B/P (MAP) 152/108 (123) Pulse Ox 95 Capillary Refill : Less Than 3 Seconds Height, Weight, BMI Height: 5'3.00" Weight: 230lbs. oz. 104.435858bx; BMI Method:Stated General Appearance: No Apparent Distress, WD/WN, Obese Eyes: Bilateral Eye Normal Inspection, Bilateral Eye PERRL HEENT: PERRL/EOMI, TMs Normal, Normal ENT Inspection, Pharynx Normal Neck: Full Range of Motion, Normal Inspection, Non Tender, Supple, Carotid Bruit Respiratory: Chest Non Tender, Lungs Clear, Normal Breath Sounds, No Accessory Muscle Use, No Respiratory Distress Cardiovascular: Regular Rate, Rhythm, No Edema, No Gallop, No JVD, No Murmur, Normal Peripheral Pulses Gastrointestinal: Normal Bowel Sounds, No Organomegaly, No Pulsatile Mass, Soft , Abnormal Bowel Sounds, Distended, Tenderness (RLQ) Back: Normal Inspection, No CVA Tenderness, No Vertebral Tenderness Extremity: Normal Capillary Refill, Normal Inspection, Normal Range of Motion, Non Tender, No Calf Tenderness, No Pedal Edema Neurologic/Psychiatric: Alert, Oriented x3, No Motor/Sensory Deficits, Normal Mood/Affect Skin: Normal Color, Warm/Dry Lymphatic: No Adenopathy Results Results/Procedures Labs Laboratory Tests 04/05/18 10:45 Patient resulted labs reviewed. Assessment/Plan Admission Diagnosis Acute pyelonephritis Leukocytosis Suspicious for acute appendicitis Plan: IV fluids IV pain medication Appreciate Dr. Chiang consultation Follow-up on urine culture Empiric Rocephin Admission Status: Inpatient Order (span 2 midnights) Reason for Inpatient Admission: Acute pyelonephritis with fever will require more than 2 midnights in the hospital with IV antibiotics Diagnosis/Problems Diagnosis/Problems (1) Right lower quadrant abdominal pain Status: Acute (2) Pyelonephritis Status: Acute (3) Fever Status: Acute Qualifiers: Fever type: unspecified Qualified Codes: R50.9 - Fever, unspecified (4) Leukocytosis Status: Acute Qualifiers: Leukocytosis type: leukemoid reaction Qualified Codes: D72.823 - Leukemoid reaction ROSA SKY DO Apr 05, 2018 13:27
[2018-04-05] MEDS ORDERED: fentaNYL INJECTION 100 MCG/2 ML AMP IV PRN ×2 (13:45→15:45)
[2018-04-05 14:00] VITALS: BP 156/89
[2018-04-05] MEDS: ONDANSETRON 4 MG/2 ML (SDV) Z0FRAN IV PRN (14:03)
[2018-04-05] MEDS: KETOROLAC 15 MG/ML VIAL IV PRN ×2 (14:08→23:43)
[2018-04-05] MEDS: NS IV 1000 ML 1,000 ML IV SCH ×2 (14:27→21:54)
[2018-04-05] MEDS ORDERED: PROMETHAZINE INJ 25 MG/ML (PHENERGAN) AMP IVP PRN (14:36)
[2018-04-05] MEDS: CATHETER FLUSH 10 ML SYR IV PRN (14:58)
[2018-04-05 16:15] VITALS: BP 134/71
--- NOTE | 2018-04-05 17:12 | Consultation ---
History of Present Illness History of Present Illness Patient Consulted On(any/time) 04/05/18 17:09 Date Seen by Provider: Apr 05, 2018 Time Seen by Provider: 13:50 Reason for Visit: Increasing lower abdominal pain and fever History of Present Illness Today's history of lower abdominal pain with nausea, fever with chills, requiring ER evaluation. CT scan shows the appendix to be about 8 mm in diameter without any evidence of inflammation or fecalith. A clinical diagnosis of pyelonephritis has been made. I been asked to see her to rule out acute appendicitis as the source of her symptoms. Allergies and Home Medications Allergies Coded Allergies: No Known Drug Allergies (Unverified , 09/25/14) Home Medications No Active Prescriptions or Reported Meds Patient Home Medication List Home Medication List Reviewed: Yes Past Oacldxu-Chnpiq-Chehdx Hx Past Med/Social Hx: Reviewed Nursing Past Med/Soc Hx Patient Social History Alcohol Use: Denies Use Recreational Drug Use: No Smoking Status: Never a Smoker Recent Foreign Travel: No Contact w/Someone Who Travel: No Recent Infectious Disease Expo: No Recent Hopitalizations: No Immunizations Up To Date Tetanus Booster (TDap): Unknown Seasonal Allergies Seasonal Allergies: No Past Medical History Surgeries: Yes (c sec x2, d&c) Section Respiratory: No Cardiac: No Neurological: No : No Last Menstrual Period: Apr 02, 2018 Reproductive Disorders: No Female Reproductive Disorders: Denies Sexually Transmitted Disease: No HIV/AIDS: No Genitourinary: No Gastrointestinal: Yes Chronic Constipation Musculoskeletal: No Endocrine: No HEENT: No Cancer: No Psychosocial: No Integumentary: No Blood Disorders: No Adverse Reaction/Blood Tranf: No Family Medical History Diabetes mellitus 19 FATHER 19 MOTHER Diabetes Review of Systems-General Constitutional: see HPI EENTM: no symptoms reported Respiratory: no symptoms reported Cardiovascular: no symptoms reported Genitourinary: see HPI Musculoskeletal: no symptoms reported Skin: no symptoms reported Psychiatric/Neurological: No Symptoms Reported Physical Exam-General Problems Physical Exam Vital Signs Vital Signs - First Documented 04/05/18 04/05/18 10:45 13:19 Temp 102.2 Pulse 135 Resp 18 B/P (MAP) 152/108 (123) Pulse Ox 95 Capillary Refill : Less Than 3 Seconds General Appearance: mild distress Gastrointestinal: non tender, soft Neurologic/Psychiatric: alert Skin: warm/dry Assessment/Plan Assessment/Plan Admission Diagnosis/Plan Lady with lower abdominal pain, fever with regular. Slightly enlarged appendix. It is reasonable to continue antibiotic therapy, managing her on the lines of pyelonephritis first. It is less likely that she has acute appendicitis and therefore reasonable to observe for now. She'll be reevaluated appropriately. Admission Status: Inpatient Order (span 2 midnights) ISRA MILLS MD Apr 05, 2018 5:12 pm
[2018-04-05 20:21] VITALS: BP 116/65
[2018-04-06] VITALS (7 sets, daily range): BP systolic 116–144; BP diastolic 74–103
[2018-04-06] MEDS: NS IV 1000 ML 1,000 ML IV SCH ×2 (06:09→16:39)
[2018-04-06 06:27] LABS: BASOPHILS % (AUTO) 0 % (0-10); EOSINOPHILS % (AUTO) 0 % (0-10); HEMATOCRIT 33 % (35-52); HEMOGLOBIN 11.3 G/DL (11.5-16.0); LYMPHOCYTES # (AUTO) 2.5 X 10^3 (1.0-4.0); LYMPHOCYTES % (AUTO) 9 % (12-44); MEAN CORPUSCULAR HEMOGLOBIN 22 PG (25-34); MEAN CORPUSCULAR HGB CONC 34 G/DL (32-36); MEAN CORPUSCULAR VOLUME 66 FL (80-99); MEAN PLATELET VOLUME 10.6 FL (7.4-10.4); MONOCYTES # (AUTO) 2.2 X 10^3 (0.0-1.0); MONOCYTES % (AUTO) 7 % (0-12); NEUTROPHILS # (AUTO) 24.7 X 10^3 (1.8-7.8); NEUTROPHILS % (AUTO) 84 % (42-75); PLATELET COUNT 243 10^3/uL (130-400); RED BLOOD COUNT 5.08 10^6/uL (4.35-5.85); RED CELL DISTRIBUTION WIDTH 15.6 % (10.0-14.5); WHITE BLOOD COUNT 29.5 10^3/uL (4.3-11.0)
[2018-04-06 06:47] LABS: ANISOCYTOSIS SLIGHT; BAND NEUTROPHILS 14 %; HYPOCHROMASIA SLIGHT; LYMPHOCYTES % (MANUAL) 14 %; MICROCYTOSIS MODERATE; MONOCYTES % (MANUAL) 13 %; NEUTROPHILS % (MANUAL) 59 %
[2018-04-06 06:51] LABS: ALANINE AMINOTRANSFERASE 25 U/L (0-55); ALBUMIN 3.3 GM/DL (3.2-4.5); ALKALINE PHOSPHATASE 128 U/L (40-136); BILIRUBIN,TOTAL 1.8 MG/DL (0.1-1.0); BUN/CREATININE RATIO 15; CALCIUM 8.2 MG/DL (8.5-10.1); CARBON DIOXIDE 18 MMOL/L (21-32); CHLORIDE 110 MMOL/L (98-107); CREATININE SERUM 0.95 MG/DL (0.60-1.30); GFR ESTIMATED > 60; GLUCOSE 61 MG/DL (70-105); POTASSIUM 3.7 MMOL/L (3.6-5.0); SODIUM 138 MMOL/L (135-145); TOTAL PROTEIN 6.9 GM/DL (6.4-8.2)
[2018-04-06] MEDS: metroNIDAZOLE 500MG/100ML IVPB 100 ML IV SCH ×3 (08:37→21:12)
--- NOTE | 2018-04-06 09:15 | Progress Note-Standard ---
Standard Progress Note Progress Notes/Assess & Plan Date Seen by Provider: Apr 06, 2018 Time Seen by Provider: 09:12 Progress/Assessment & Plan Denies abdominal pain and feels hungry. Nausea resolved. Temperature decreased. Leucocytosis more pronounced. Abdomen soft and non-tender. Doubt she has appendicitis. Urine cultures pending. Flagyl added. Will advance diet and follow [facility] Final Diagnosis Abdominal pain Focused Exam Lactate Level 04/05/18 10:50: Lactic Acid Level 1.24 ISRA MILLS MD Apr 06, 2018 09:15
--- NOTE | 2018-04-06 10:14 | Progress Note-Hospitalist ---
Subjective HPI/CC On Admission Date Seen by Provider: Apr 06, 2018 Time Seen by Provider: 09:45 CC: RLQ abdominal pain with fever and Pyelonephritis HPI: This is a 33-year-old -[place] female who sees [facility] on a rare basis who presents to the ER with complaints of right lower quadrant abdominal pain with fever. She reports feeling well until 2 days prior when she started having nausea and the abdominal pain started and only worsened. She was assessed in the ER found to have elevated white count with fever of 102 in addition to a questionable right lower quadrant CT scan that could reveal early appendicitis. Dr. Chiang has been consulted and will place patient in nothing by mouth status and will monitor closely in case acute appendicitis is confirmed. She did have nausea and vomiting in the ER so will initiate IV fluids and anti-emetics along with abdominal pain management. She has been placed on Rocephin empirically and will follow up on urine culture results. Subjective/Events-last exam Patient doing about the same although abdominal pain is much improved Fever continues due to acute pyelonephritis Elevated white count of 29,[address] Chiang assessed her and felt this was not acute appendicitis and it was indeed confirmed pyelonephritis Toradol given for pain and fever Overall much better and no vomiting today Review of Systems General: Fatigue Gastrointestinal: Abdominal Pain Focused Exam Lactate Level 04/05/18 10:50: Lactic Acid Level 1.24 Objective Exam Vital Signs Vital Signs Date Time Temp Pulse Resp B/P (MAP) Pulse Ox O2 Delivery O2 Flow Rate FiO2 04/06/18 21:13 101.9 04/06/18 20:51 109 24 137/87 (104) 96 Room Air Capillary Refill : Less Than 3 Seconds General Appearance: No No Apparent Distress; WD/WN Neck: Normal Inspection, Non Tender Respiratory: Chest Non Tender, Lungs Clear, Normal Breath Sounds, No Accessory Muscle Use, No Respiratory Distress Cardiovascular: Regular Rate, Rhythm, No Edema, No Gallop, No JVD, No Murmur, Normal Peripheral Pulses Gastrointestinal: Soft Neurologic/Psychiatric: Alert, Oriented x3, No Motor/Sensory Deficits, Normal Mood/Affect Results/Procedures Lab Laboratory Tests 04/06/18 05:12 Patient resulted labs reviewed. Assessment/Plan Assessment and Plan Assess & Plan/Chief Complaint Acute pyelonephritis Fever Abdominal pain RLQ Plan: Fever management IVF Pain control Abx Diagnosis/Problems Diagnosis/Problems (1) Right lower quadrant abdominal pain Status: Acute (2) Pyelonephritis Status: Acute (3) Fever Status: Acute Qualifiers: Fever type: unspecified Qualified Codes: R50.9 - Fever, unspecified (4) Leukocytosis Status: Acute Qualifiers: Leukocytosis type: leukemoid reaction Qualified Codes: D72.823 - Leukemoid reaction Clinical Quality Measures DVT/VTE Risk/Contraindication: Risk Factor Score Per Nursin RFS Level Per Nursing on Admit: 2=Moderate MAUREEN PEREZ DO Apr 06, 2018 10:14
[2018-04-06] MEDS: KETOROLAC 15 MG/ML VIAL IV PRN (15:56)
[2018-04-06] MEDS ORDERED: FUROSEMIDE 40 MG/4 ML INJ (LASIX) IVP ONE (16:45)
[2018-04-06] MEDS ORDERED: FUROSEMIDE 40 MG/4 ML INJ (LASIX) ONE (16:45)
[2018-04-06] MEDS: CATHETER FLUSH 10 ML SYR IV PRN (16:49)
[2018-04-06] MEDS ORDERED: ACETAMINOPHEN 325 MG TABLET PO PRN (21:00)
[2018-04-06] MEDS ORDERED: ACETAMINOPHEN 325 MG TABLET ONE (21:09)
[2018-04-06] MEDS: CATHETER FLUSH 10 ML SYR IV SCH (21:12)
[2018-04-06] MEDS: ONDANSETRON 4 MG/2 ML (SDV) Z0FRAN IV PRN (21:16)
[2018-04-07 00:20] VITALS: BP 125/80
[2018-04-07] MEDS: KETOROLAC 15 MG/ML VIAL IV PRN (00:35)
[2018-04-07 03:40] VITALS: BP 114/70
[2018-04-07] MEDS: CATHETER FLUSH 10 ML SYR IV SCH (05:40)
[2018-04-07] MEDS: metroNIDAZOLE 500MG/100ML IVPB 100 ML IV SCH (05:40)
[2018-04-07 06:24] LABS: BASOPHILS % (AUTO) 0 % (0-10); EOSINOPHILS # (AUTO) 0.2 10^3/uL (0.0-0.3); EOSINOPHILS % (AUTO) 1 % (0-10); HEMATOCRIT 31 % (35-52); HEMOGLOBIN 10.3 G/DL (11.5-16.0); LYMPHOCYTES # (AUTO) 2.1 X 10^3 (1.0-4.0); LYMPHOCYTES % (AUTO) 12 % (12-44); MEAN CORPUSCULAR HEMOGLOBIN 22 PG (25-34); MEAN CORPUSCULAR HGB CONC 33 G/DL (32-36); MEAN CORPUSCULAR VOLUME 66 FL (80-99); MEAN PLATELET VOLUME 9.9 FL (7.4-10.4); MONOCYTES # (AUTO) 1.3 X 10^3 (0.0-1.0); MONOCYTES % (AUTO) 8 % (0-12); NEUTROPHILS # (AUTO) 13.5 X 10^3 (1.8-7.8); NEUTROPHILS % (AUTO) 79 % (42-75); PLATELET COUNT 241 10^3/uL (130-400); RED BLOOD COUNT 4.79 10^6/uL (4.35-5.85); RED CELL DISTRIBUTION WIDTH 15.6 % (10.0-14.5); WHITE BLOOD COUNT 17.1 10^3/uL (4.3-11.0)
[2018-04-07 06:52] LABS: ALANINE AMINOTRANSFERASE 17 U/L (0-55); ALKALINE PHOSPHATASE 94 U/L (40-136); BILIRUBIN,TOTAL 0.9 MG/DL (0.1-1.0); BUN/CREATININE RATIO 16; CALCIUM 8.5 MG/DL (8.5-10.1); CARBON DIOXIDE 20 MMOL/L (21-32); CHLORIDE 112 MMOL/L (98-107); CREATININE SERUM 0.77 MG/DL (0.60-1.30); GFR ESTIMATED > 60; GLUCOSE 95 MG/DL (70-105); POTASSIUM 3.6 MMOL/L (3.6-5.0); SODIUM 138 MMOL/L (135-145); TOTAL PROTEIN 6.5 GM/DL (6.4-8.2)
[2018-04-07 08:00] VITALS: BP 135/74
[2018-04-07] MEDS ORDERED: ONDA8TAB9 SL (11:00)
[2018-04-07] MEDS ORDERED: AMOX-358 PO (11:00)
[2018-04-07] MEDS ORDERED: ACHD5005 PO (11:00)
--- NOTE | 2018-04-07 11:01 | Discharge Summary-Hospitalist ---
Diagnosis/Chief Complaint Date of Admission Apr 05, 2018 at 12:27 Date of Discharge Discharge Date: Apr 07, 2018 Admission Diagnosis Acute pyelonephritis Leukocytosis Suspicious for acute appendicitis Plan: IV fluids IV pain medication Appreciate Dr. Chiang consultation Follow-up on urine culture Empiric Rocephin Discharge Diagnosis (1) Right lower quadrant abdominal pain Status: Acute (2) Pyelonephritis Status: Acute (3) Fever Status: Resolved (4) Leukocytosis Status: Acute Discharge Summary Discharge Physical Exam Allergies: Coded Allergies: No Known Drug Allergies (Unverified , 09/25/14) Vitals & I&Os Vital Signs Date Time Temp Pulse Resp B/P (MAP) Pulse Ox O2 Delivery O2 Flow Rate FiO2 04/07/18 12:20 04/07/18 08:00 98.8 90 20 100 Room Air General Appearance: Alert, Oriented X3, Cooperative HEENT: Atraumatic, PERRLA Respiratory: Clear to Auscultation, Normal Air Movement Cardiovascular: Regular Rate Abdominal: Normal Bowel Sounds, Soft Neuro: Normal Gait, Normal Speech, Strength at 5/5 X4 Ext Psych/Mental Status: Mental Status NL, Mood NL Hospital Course Hospital course: Patient was admitted for fever and elevated white count of right lower quadrant abdominal pain with acute polynephritis also requiring Dr. Chiang general surgeon for evaluation for early appendicitis which was completely ruled out. Blood cultures remain negative urine culture revealed pansensitive Escherichia coli and patient was transitioned over to oral antibiotics and was arranged to have a very close follow-up with [facility] to recheck white count that had gone down from 29,000 and 17,000 and will have a small supply of Zofran and hydrocodone for nausea and pain respectively. Labs (last 24 hrs) Laboratory Tests 04/07/18 06:07: White Blood Count 17.1H, Red Blood Count 4.79, Hemoglobin 10.3L, Hematocrit 31L , Mean Corpuscular Volume 66L, Mean Corpuscular Hemoglobin 22L, Mean Corpuscular Hemoglobin Concent 33, Red Cell Distribution Width 15.6H, Platelet Count 241, Mean Platelet Volume 9.9, Neutrophils (%) (Auto) 79H, Lymphocytes (% ) (Auto) 12, Monocytes (%) (Auto) 8, Eosinophils (%) (Auto) 1, Basophils (%) ( Auto) 0, Neutrophils # (Auto) 13.5H, Lymphocytes # (Auto) 2.1, Monocytes # (Auto ) 1.3H, Eosinophils # (Auto) 0.2, Basophils # (Auto) 0.0, Sodium Level 138, Potassium Level 3.6, Chloride Level 112H, Carbon Dioxide Level 20L, Anion Gap 6 , Blood Urea Nitrogen 12, Creatinine 0.77, Estimat Glomerular Filtration Rate > 60, BUN/Creatinine Ratio 16, Glucose Level 95, Calcium Level 8.5, Total Bilirubin 0.9, Aspartate Amino Transf (AST/SGOT) 14, Alanine Aminotransferase ( ALT/SGPT) 17, Alkaline Phosphatase 94, Total Protein 6.5, Albumin 3.0L Microbiology 04/05/18 Blood Culture - Preliminary, Resulted No growth 04/05/18 Urine Culture - Final, Complete Escherichia coli Patient resulted labs reviewed. Pending Labs Discussion & Recommendations Discharge Planning: <30 minutes discharge planning Discharge Home Medications: Active Scripts Active Augmentin 875-125 Tablet (Amoxicillin/Potassium Clav) 1 Each Tablet 1 Each PO BID Zofran Odt (Ondansetron) 8 Mg Tab.rapdis 8 Mg SL Q4H PRN Hydrocodone/Acetaminophen 5/325mg Tablet (Acetaminophen/Hydrocodone Bitart) 1 Tab Tab 1 Tab PO Q6H PRN Instructions to patient/family Please see electronic discharge instructions given to patient. Clinical Quality Measures DVT/VTE Risk/Contraindication: Risk Factor Score Per Nursin RFS Level Per Nursing on Admit: 2=Moderate Problem Qualifiers (1) Fever: Fever type: unspecified Qualified Codes: R50.9 - Fever, unspecified (2) Leukocytosis: Leukocytosis type: leukemoid reaction Qualified Codes: D72.823 - Leukemoid reaction MAUREEN PEREZ DO Apr 07, 2018 11:01
== END 2018-04-07 12:20 | disposition home or self-care (01) | DRG 690 ==
LOC: EDUNIT# 10:20 → ER 10:21 → 4TH 12:27
PROVIDERS: ADMIT Internal Medicine; ATTEND Internal Medicine
DX: N10 Acute pyelonephritis (principal); R59.9 Enlarged lymph nodes, unspecified; B96.20 Unspecified Escherichia coli [E. coli] as the cause of diseases classified elsewhere
CPT/HCPCS: 36415; 74177; 80053; 81000; 83605; 84703; 85007; 85025; 85027; 86141; 87040; 87088; 87186; 96361; 96365; 96375; 96376